=== PATIENT | male | born 1990 | race Hispanic/Latino ===

== ENCOUNTER 2022-08-14 20:05 | Emergency (ER) | payer OTHER ==
[~2022-08-14] VITALS: Ht 170.2 cm; Wt 95.3 kg
[2022-08-14 20:10] VITALS: BP 152/91
== END 2022-08-14 21:21 ==
LOC: EDH 20:05 → EDBD 20:05 → EDH 21:21
DX: Z02.89 Encounter for other administrative examinations (principal)